=== PATIENT | male | born 1960 | race Two or more races ===

== ENCOUNTER 2021-05-25 19:31 | Emergency (ER) | payer SELFPAY ==
[~2021-05-25] VITALS: Ht 177.8 cm; Wt 113.6 kg
[2021-05-25 19:44] VITALS: BP 156/89
[2021-05-25] MEDS ORDERED: proparacaine 0.5% ophthalmic drops 15ml EACHEYE ONE (21:40)
== END 2021-05-26 02:00 | disposition left against medical advice (07) ==
LOC: ER 19:32
DX: H57.89 Other specified disorders of eye and adnexa (principal); Z53.21 Procedure and treatment not carried out due to patient leaving prior to being seen by health care provider
CPT/HCPCS: 99285